=== PATIENT | female | born 1955 | race Caucasian/White ===

== ENCOUNTER 2022-05-08 05:34 | Observation (INO) | payer MEDICARE ==
[2022-05-03 13:18] LABS: BASOPHILS % (AUTO) 0.5 % (0.0-5.0); EOSINOPHILS % (AUTO) 2.2 % (0.0-8.0); HEMATOCRIT 43.3 % (36-48); LYMPHOCYTES % (AUTO) 32.1 % (21.0-51.0); MEAN CORPUSCULAR HEMOGLOBIN 30.5 pg (27.0-33.0); MEAN CORPUSCULAR HGB CONC 31.9 g/dL (32.0-36.0); MEAN CORPUSCULAR VOLUME 95.8 fL (79-99); MONOCYTES % (AUTO) 7.1 % (3.0-13.0); NEUTROPHILS % (AUTO) 57.9 % (40.0-77.0); PLATELET COUNT (AUTO) 292 K/uL (130-400); RED BLOOD CELL COUNT(AUTO) 4.52 MIL/uL (4.00-5.50); RED CELL DISTRIBUTION WIDTH 13.2 % (11.0-15.5); WHITE BLOOD COUNT (AUTO) 6.2 K/uL (4.8-10.8)
[2022-05-03 13:33] LABS: CREATININE 0.8 mg/dL (0.5-1.5); POTASSIUM 4.9 mmol/L (3.5-5.1)
[2022-05-04 09:04] VITALS: BP 175/88
[~2022-05-08] VITALS: Ht 166.4 cm; Wt 83.7 kg
[2022-05-08] VITALS (25 sets, daily range): BP systolic 105–152; BP diastolic 44–88
[~2022-05-08 05:34] MED LIST: LACTATED RINGERS 1000ML 1,000 ML IV SCH
[2022-05-08] MEDS: CEFAZOLIN SODIUM 1 GM VIAL IVP SCH ×2 (06:00→07:00)
[2022-05-08 06:14] LABS: APPEARANCE,URINE CLEAR (CLEAR); BILIRUBIN,URINE NEGATIVE (NEGATIVE); COLOR,URINE YELLOW (YELLOW); GLUCOSE, URINE (UA) NEGATIVE (NEGATIVE); KETONES,URINE NEGATIVE (NEGATIVE); LEUKOCYTE ESTERASE ,URINE NEGATIVE (NEGATIVE); NITRATE,URINE NEGATIVE (NEGATIVE); OCCULT BLOOD,URINE TRACE-INTACT (NEGATIVE); PH,URINE 5.5 (5.0-8.0); PROTEIN,URINE NEGATIVE (NEGATIVE); UROBILINOGEN,URINE 0.2 mg/dL (0.2-1.0)
[2022-05-08 06:21] LABS: RBC,URINE 0-1 /HPF (0-1); WBC,URINE None Seen /HPF (0-1)
[2022-05-08 06:22] LABS: BACTERIA,URINE None Seen /HPF (None Seen); SQUAMOUS EPITHELIAL CELL,UR Many /HPF (0-2)
[2022-05-08] MEDS ORDERED: HYDROMORPHONE 1 MG INJ ONE ×2 (06:47→09:31)
[2022-05-08] MEDS ORDERED: FAMOTIDINE 20MG VIAL IV ONE (06:47)
[2022-05-08] MEDS ORDERED: PROPOFOL 10 MG/ML 20ML VIAL IV ONE (06:49)
[2022-05-08] MEDS ORDERED: SUCCINYLCHOLINE CHLORIDE 20 MG/ML 10 ML VIAL ONE (06:49)
[2022-05-08] MEDS ORDERED: GLYCOPYRROLATE 1 MG/5 ML SYRINGE ONE (06:49)
[2022-05-08] MEDS ORDERED: FENTANYL CITRATE PF 50 MCG/1 ML 2ML VIAL ONE (06:49)
[2022-05-08] MEDS ORDERED: MIDAZOLAM HCL 1 MG/ML 2ML VIAL ONE (06:50)
[2022-05-08] MEDS ORDERED: ROCURONIUM 10MG/1ML SYR 10 MG/ML ML ONE ×2 (06:50→08:31)
[2022-05-08] MEDS ORDERED: NEOSTIGMINE 5MG/5ML SYR IV ONE (08:29)
[2022-05-08] MEDS ORDERED: ONDANSETRON 4MG INJ ONE (08:46)
[2022-05-08] MEDS ORDERED: ACETAMINOPHEN WITH CODEINE 1 TAB TAB ONE (10:54)
[2022-05-08] MEDS ORDERED: ACETAMINOPHEN WITH CODEINE 1 TAB TAB PO PRN (11:30)
[2022-05-08] MEDS ORDERED: PROMETHAZINE HCL 25 MG/ML 1ML AMPULE IM PRN (11:30)
[2022-05-08] MEDS ORDERED: BISACODYL 10 MG SUPP.RECT RC PRN (11:30)
[2022-05-08] MEDS ORDERED: IBUPROFEN 600 MG TABLET PO PRN (11:30)
[2022-05-08] MEDS ORDERED: ONDANSETRON 4MG INJ IVP PRN (11:30)
[2022-05-08] MEDS: DEXTROSE 5 %-0.45 % NACL 1,000 ML IV PRN ×2 (12:13→20:30)
[2022-05-08] MEDS: PROMETHAZINE HCL 25 MG/ML 1ML AMPULE IM PRN (17:24)
[2022-05-08] MEDS: MEPERIDINE-PF 75 MG/ML SYG IM PRN (17:24)
[2022-05-09] MEDS: MEPERIDINE-PF 75 MG/ML SYG IM PRN (01:15)
[2022-05-09] MEDS: PROMETHAZINE HCL 25 MG/ML 1ML AMPULE IM PRN (01:15)
[2022-05-09 03:25] VITALS: BP 114/55
[2022-05-09] MEDS: DEXTROSE 5 %-0.45 % NACL 1,000 ML IV PRN (04:39)
[2022-05-09 05:13] LABS: HEMATOCRIT 40.5 % (36-48); MEAN CORPUSCULAR HEMOGLOBIN 30.5 pg (27.0-33.0); MEAN CORPUSCULAR HGB CONC 31.4 g/dL (32.0-36.0); MEAN CORPUSCULAR VOLUME 97.1 fL (79-99); RED BLOOD CELL COUNT(AUTO) 4.17 MIL/uL (4.00-5.50); RED CELL DISTRIBUTION WIDTH 13.1 % (11.0-15.5); WHITE BLOOD COUNT (AUTO) 9.7 K/uL (4.8-10.8)
[2022-05-09 07:30] VITALS: BP 142/80
[2022-05-09] MEDS ORDERED: HYDROCODONE/ACETAMINOPHEN 5/325 MG TAB PO PRN (08:00)
[2022-05-09] MEDS: IBUPROFEN 800 MG TAB PO PRN ×2 (08:28→15:24)
[2022-05-09] MEDS: SIMETHICONE 80 MG TAB.CHEW PO PRN ×2 (08:28→21:06)
[2022-05-09] MEDS: NITROFURANTOIN MONOHYD/M-CRYST 100 MG CAPSULE PO SCH ×2 (08:28→21:06)
[2022-05-09] MEDS: DOCUSATE SODIUM 100 MG CAP PO PRN ×2 (08:28→21:06)
[2022-05-09 11:00] VITALS: BP 120/67
[2022-05-09] MEDS: ACETAMINOPHEN WITH CODEINE 1 TAB TAB PO PRN ×2 (12:53→21:36)
[2022-05-09 16:18] VITALS: BP 136/86
[2022-05-09 19:16] VITALS: BP 127/70
[2022-05-09 23:05] VITALS: BP 123/65
[2022-05-10 03:05] VITALS: BP 120/66
[2022-05-10 07:19] VITALS: BP 116/56
[2022-05-10] MEDS: DOCUSATE SODIUM 100 MG CAP PO PRN (09:05)
[2022-05-10] MEDS: SIMETHICONE 80 MG TAB.CHEW PO PRN (09:05)
[2022-05-10] MEDS: NITROFURANTOIN MONOHYD/M-CRYST 100 MG CAPSULE PO SCH (09:05)
[2022-05-10] MEDS: IBUPROFEN 800 MG TAB PO PRN (09:07)
[2022-05-10 11:42] VITALS: BP 132/63
== END 2022-05-10 12:50 | disposition home or self-care (01) ==
LOC: DAH 05:34 → WSH 05:35
PROVIDERS: ADMIT Obstetrics & Gynecology; ATTEND Obstetrics & Gynecology
DX: N81.3 Complete uterovaginal prolapse (principal); Z20.822 Contact with and (suspected) exposure to COVID-19; R68.89 Other general symptoms and signs; Z90.710 Acquired absence of both cervix and uterus; Z79.899 Other long term (current) drug therapy; Z98.890 Other specified postprocedural states
CPT/HCPCS: 36415 ×3; 57260; 57288; 80048; 81001; 85025; 85027; 86850 ×2; 86900 ×2; 86901 ×2; 87635; 96372 ×2; A4215; A4221; A4222; A4223; A4344; A4351; A4510; A4600; A4606; A4663; A6260; C1771; G0168; G0378 ×51; G0379; J0690; J1170 ×2; J2175 ×2; J2250; J2405; J2550 ×2; J2704; J2710; J3010; J3490 ×2; J7120; J0330

== ENCOUNTER 2023-04-25 12:28 | Emergency (ER) | payer MEDICARE ==
[~2023-04-25] VITALS: Ht 167.6 cm; Wt 85.3 kg
[2023-04-25 12:30] VITALS: BP 166/100
[2023-04-25 13:05] LABS: HEMATOCRIT 41.9 % (36-48); MEAN CORPUSCULAR HEMOGLOBIN 30.6 pg (27.0-33.0); MEAN CORPUSCULAR HGB CONC 32.7 g/dL (32.0-36.0); MEAN CORPUSCULAR VOLUME 93.5 fL (79-99); RED BLOOD CELL COUNT(AUTO) 4.48 MIL/uL (4.00-5.50); RED CELL DISTRIBUTION WIDTH 13.2 % (11.0-15.5); WHITE BLOOD COUNT (AUTO) 7.7 K/uL (4.8-10.8)
[2023-04-25 13:12] LABS: CREATININE 0.8 mg/dL (0.5-1.5); POTASSIUM 3.9 mmol/L (3.5-5.1)
[2023-04-25 13:13] LABS: INR 0.95 (0.85-1.15); PROTHROMBIN TIME 10.4 SEC (9.6-11.6)
[2023-04-25 13:15] LABS: PARTIAL THROMBOPLASTIN TIME 27.1 SEC (26.3-35.5)
[2023-04-25 13:17] LABS: TOTAL PROTEIN, SERUM 7.6 g/dL (6.0-8.3)
[2023-04-25 15:32] LABS: BASOPHILS % (AUTO) 0.6 % (0.0-5.0); EOSINOPHILS % (AUTO) 1.9 % (0.0-8.0); HEMATOCRIT 43.1 % (36-48); LYMPHOCYTES % (AUTO) 22.9 % (21.0-51.0); MEAN CORPUSCULAR HEMOGLOBIN 30.3 pg (27.0-33.0); MEAN CORPUSCULAR HGB CONC 32.3 g/dL (32.0-36.0); MEAN CORPUSCULAR VOLUME 94.1 fL (79-99); MONOCYTES % (AUTO) 5.8 % (3.0-13.0); NEUTROPHILS % (AUTO) 68.6 % (40.0-77.0); PLATELET COUNT (AUTO) 332 K/uL (130-400); RED BLOOD CELL COUNT(AUTO) 4.58 MIL/uL (4.00-5.50); RED CELL DISTRIBUTION WIDTH 13.2 % (11.0-15.5); WHITE BLOOD COUNT (AUTO) 8.3 K/uL (4.8-10.8)
[2023-04-25] MEDS ORDERED: IBUP-2070 PO (16:11)
[2023-04-25] MEDS ORDERED: CYCL10TA16 PO (16:11)
[2023-04-25 16:47] LABS: APPEARANCE,URINE CLEAR (CLEAR); BILIRUBIN,URINE NEGATIVE (NEGATIVE); GLUCOSE, URINE (UA) NEGATIVE (NEGATIVE); KETONES,URINE NEGATIVE (NEGATIVE); LEUKOCYTE ESTERASE ,URINE NEGATIVE Leu/uL (NEGATIVE); NITRATE,URINE NEGATIVE (NEGATIVE); OCCULT BLOOD,URINE NEGATIVE (NEGATIVE); PH,URINE 6.5 (5.0-8.0); PROTEIN,URINE NEGATIVE (NEGATIVE); UROBILINOGEN,URINE 0.2 mg/dL (0.2-1.0)
[2023-04-25 16:48] LABS: COLOR,URINE STRAW (YELLOW)
== END 2023-04-25 18:10 | disposition home or self-care (01) ==
LOC: EDH 12:28
DX: S86.812A Strain of other muscle(s) and tendon(s) at lower leg level, left leg, initial encounter (principal); I48.91 Unspecified atrial fibrillation; Z79.899 Other long term (current) drug therapy; Z98.890 Other specified postprocedural states; X58.XXXA Exposure to other specified factors, initial encounter; Y93.89 Activity, other specified; Y92.89 Other specified places as the place of occurrence of the external cause; Y99.8 Other external cause status
CPT/HCPCS: 36415; 80053; 81003; 82550; 84484; 85025; 85027; 85378; 85610; 85730; 93005; 93971

== ENCOUNTER 2023-05-10 09:07 | Emergency (ER) | payer MEDICARE ==
[~2023-05-10] VITALS: Ht 170.2 cm; Wt 85.3 kg
[~2023-05-10 09:07] MED LIST changes: +CYCL10TA16 PO; +IBUP-2070 PO; -LACTATED RINGERS 1000ML 1,000 ML IV SCH
[2023-05-10] MEDS ORDERED: IOHEXOL 350 MG/ML 100ML INFUS..BTL IV ONE (09:08)
[2023-05-10 09:41] LABS: BASOPHILS # (AUTO) 0.03 K/uL (0.00-0.20); BASOPHILS % (AUTO) 0.4 % (0.0-5.0); EOSINOPHILS # (AUTO) 0.07 K/uL (0.00-0.70); IMMATURE GRANULOCYTE ABSOLUTE 0.02 K/uL (0-1); LYMPHOCYTES # (AUTO) 1.3 K/uL (1.0-4.8); LYMPHOCYTES % (AUTO) 19.5 % (21.0-51.0); MEAN CORPUSCULAR HEMOGLOBIN 31.1 pg (27.0-33.0); MEAN CORPUSCULAR HGB CONC 33.1 g/dL (32.0-36.0); MONOCYTES # (AUTO) 0.4 K/uL (0.1-1.0); MONOCYTES % (AUTO) 5.3 % (3.0-13.0); NEUTROPHILS % (AUTO) 73.5 % (40.0-77.0); PLATELET COUNT (AUTO) 313 K/uL (130-400); RED BLOOD CELL COUNT(AUTO) 4.47 MIL/uL (4.00-5.50); RED CELL DISTRIBUTION WIDTH 12.9 % (11.0-15.5); WHITE BLOOD COUNT (AUTO) 6.8 K/uL (4.8-10.8)
[2023-05-10 10:34] LABS: APPEARANCE,URINE CLEAR (CLEAR); BILIRUBIN,URINE NEGATIVE (NEGATIVE); COLOR,URINE YELLOW (YELLOW); GLUCOSE, URINE (UA) NEGATIVE (NEGATIVE); KETONES,URINE NEGATIVE (NEGATIVE); LEUKOCYTE ESTERASE ,URINE 25 Leu/uL (NEGATIVE); NITRATE,URINE NEGATIVE (NEGATIVE); OCCULT BLOOD,URINE NEGATIVE (NEGATIVE); PROTEIN,URINE 10 mg/dL (NEGATIVE); UROBILINOGEN,URINE 0.2 mg/dL (0.2-1.0)
[2023-05-10 10:43] LABS: ADD UA MICROSCOPIC YES
[2023-05-10 10:47] LABS: MUCUS,URINE RARE LPF (None Seen); RBC,URINE 0-1 /HPF (0-1); SQUAMOUS EPITHELIAL CELL,UR FEW /HPF (0-2)
[2023-05-10 11:09] LABS: CREATININE 0.6 mg/dL (0.5-1.5); POTASSIUM 4.5 mmol/L (3.5-5.1)
[2023-05-10 11:14] LABS: ALBUMIN 3.8 g/dL (3.5-5.0); BILIRUBIN,TOTAL 0.4 mg/dL (0.2-1.0); TOTAL PROTEIN, SERUM 7.2 g/dL (6.0-8.3)
[2023-05-10] MEDS ORDERED: ACETAMINOPHEN 325 MG TAB ONE (14:25)
[2023-05-10] MEDS ORDERED: ACETAMINOPHEN 325 MG TAB PO ONE (14:30)
[2023-05-10 14:40] VITALS: BP 168/98; PULSE 73; RESP 17; O2SAT 97
[2023-05-10] MEDS ORDERED: LOSA50TA64 PO (14:49)
== END 2023-05-10 15:08 | disposition home or self-care (01) ==
LOC: EDH 09:07
DX: R51.9 Headache, unspecified (principal); I10 Essential (primary) hypertension; M79.605 Pain in left leg; Z90.710 Acquired absence of both cervix and uterus; Z79.899 Other long term (current) drug therapy; Z98.890 Other specified postprocedural states
CPT/HCPCS: 99285; 70496; 93971; 93926; 84484; 80053; 85025; 85651; 81001; 36415; 70498; 93005; 70450; Q9967

== ENCOUNTER → 2023-05-11 | Outpatient (CLI) | payer MEDICARE ==
[~2023-05-11] MED LIST changes: +IOHEXOL 350 MG/ML 100ML INFUS..BTL IV ONE; +LOSA50TA64 PO
== END | disposition home or self-care (01) ==
LOC: SHCH 10:56
PROVIDERS: ATTEND Student in an Organized Health Care Education/Training Program
DX: I48.0 Paroxysmal atrial fibrillation (principal); I51.7 Cardiomegaly
CPT/HCPCS: 93306; Q9967

== ENCOUNTER → 2025-01-25 | Outpatient (CLI) | payer OTHER ==
[~2025-01-25] MED LIST changes: -IOHEXOL 350 MG/ML 100ML INFUS..BTL IV ONE
[2025-01-25 12:06] LABS: HEMOGLOBIN A1C 5.2 % (4.0-6.0)
[2025-01-25 12:21] LABS: CHOLESTEROL 216 mg/dL (<200); HDL CHOLESTEROL 61 mg/dL (35-85); LDL DIRECT 134 mg/dL (0-99); TRIGLYCERIDES 141 mg/dL (30-200)
== END | disposition home or self-care (01) ==
LOC: LAB 01-22 09:26
PROVIDERS: ATTEND Student in an Organized Health Care Education/Training Program
DX: I48.0 Paroxysmal atrial fibrillation (principal); Z79.899 Other long term (current) drug therapy
CPT/HCPCS: 36415; 80061; 83036